=== PATIENT | male | born 1945 | race Two or more races ===

== ENCOUNTER 2021-09-21 11:10 | Outpatient (CLI) | payer OTHER | END 2021-09-21 11:11 | disposition home or self-care (01) | LOC: NUCLEAR 11:10 | PROVIDERS: ATTEND General Practice | DX: Z13.820 Encounter for screening for osteoporosis (principal); M85.80 Other specified disorders of bone density and structure, unspecified site ==

== ENCOUNTER 2022-10-28 11:11 | Emergency (ER) | payer OTHER ==
[~2022-10-28] VITALS: Ht 185.4 cm; Wt 108.0 kg
[2022-10-28] MEDS ORDERED: METFORMIN HCL1000 M3 PO (11:27)
[2022-10-28] MEDS ORDERED: AMLODIPINE BESYL5 MG PO (11:27)
[2022-10-28] MEDS ORDERED: SIMVASTATIN40 MG PO (11:27)
[2022-10-28] MEDS ORDERED: LOSARTAN-HCTZ1 EAC2 PO (11:27)
== END 2022-10-28 14:11 | disposition home or self-care (01) ==
LOC: ER 11:11
DX: R60.0 Localized edema (principal); I10 Essential (primary) hypertension; E11.9 Type 2 diabetes mellitus without complications; Z79.84 Long term (current) use of oral hypoglycemic drugs

== ENCOUNTER 2023-06-11 14:42 | Emergency (ER) | payer OTHER ==
[~2023-06-11] VITALS: Ht 182.9 cm; Wt 118.8 kg
[~2023-06-11 14:42] MED LIST: AMLODIPINE BESYL5 MG PO; LOSARTAN-HCTZ1 EAC2 PO; METFORMIN HCL1000 M3 PO; SIMVASTATIN40 MG PO
[2023-06-11] MEDS ORDERED: ARICEPT5 MG PO (15:10)
[2023-06-11] MEDS ORDERED: DEXAMETHASONE SODIUM PHOSPHATE 4 MG/ML VIAL IV ONE (16:00)
[2023-06-11 17:01] LABS: HEMATOCRIT 43.3 % (39.0-48.0); HEMOGLOBIN 15.1 g/dL (13-16.00); MEAN CELL VOLUME 101.3 fL (80.0-100.00); MEAN CORPUSCULAR HEMOGLOBIN 35.3 pg (27.00-32.0); MEAN CORPUSCULAR HGB CONC 34.8 g/dl (32.0-36.0); PLATELET COUNT 230 K/uL (150-450); RED BLOOD COUNT 4.28 M/uL (4.00-6.00); RED CELL DISTRIBUTION WIDTH 13.2 % (11.5-14.5)
[2023-06-11 17:07] LABS: PH,URINE 7.5 (5.0-8.0); URINE APPEARANCE Clear; URINE BILIRRUBIN Negative (NEGATIVE); URINE BLOOD Trace; URINE COLOR Yellow; URINE GLUCOSE Negative (NEGATIVE); URINE LEUKOCYTE Negative; URINE NITRATE Negative; URINE PROTEIN Negative (NEGATIVE)
[2023-06-11 17:08] LABS: URINE RBC 28.3 uL (0.0-20.8)
[2023-06-11 17:19] LABS: URINE BACTERIA 2.5 uL (0.0-1933); URINE EPITHELIAL CELLS 0.9 uL (0.0-38.8); URINE WBC 0.4 uL (0.0-23.2)
[2023-06-11 17:21] LABS: INR 1.03; PARTIAL THROMBOPLASTIN TIME 27.1 SECONDS (22.0-34.0); PROTHROMBIN TIME 10.8 SECONDS (9.0-11.5)
[2023-06-11 17:32] LABS: ALBUMIN 4.7 gm/dL (3.4-5.0); BILIRUBIN TOTAL 1.85 mg/dL (0.3-1.2); CALCIUM 9.9 mg/dL (8.5-10.1); CREATININE SERUM 0.98 mg/dL (0.70-1.30); GFR 74.56; GLOBULINA 3.1 G/DL (2.4-3.5); POTASSIUM 4.07 mEq/L (3.5-5.1); TOTAL PROTEIN 7.8 gm/dL (6.4-8.2)
== END 2023-06-11 18:30 ==
LOC: ER 14:43
PROVIDERS: Nurse Practitioner Family
DX: R41.3 Other amnesia (principal); R51.9 Headache, unspecified; Z20.822 Contact with and (suspected) exposure to COVID-19; I10 Essential (primary) hypertension; E78.49 Other hyperlipidemia; E11.9 Type 2 diabetes mellitus without complications; Z79.84 Long term (current) use of oral hypoglycemic drugs
CPT/HCPCS: 36415; 71046; 93005; 96365; 99283; J1100

== ENCOUNTER 2023-06-23 10:01 | Outpatient (CLI) | payer OTHER ==
[~2023-06-23 10:01] MED LIST changes: +ARICEPT5 MG PO
== END 2023-06-23 10:52 | disposition home or self-care (01) ==
LOC: TOM 10:01 → MRI 10:01
PROVIDERS: ATTEND Psychiatry & Neurology Clinical Neurophysiology
DX: D32.9 Benign neoplasm of meninges, unspecified (principal)
CPT/HCPCS: 70553